=== PATIENT | female | born 1930 ===

== ENCOUNTER 2016-11-17 22:25 | Inpatient (IN) | payer MEDICARE, MEDICAID ==
[2016-11-18 00:44] LABS: Albumin 3.7 g/dL (3.2-5.2); BUN/Creatinine Ratio 32.7 (8-20); C Reactive Protein 97.65 mg/L (< 5.00); Calcium 10.1 mg/dL (8.6-10.3); EGFR African American 43.1 (>60); EGFR Non-African American 33.5 (>60); Globulin 4.1 g/dL (2-4); Magnesium 2.9 mg/dL (1.9-2.7); Potassium 3.6 mmol/L (3.5-5.0); Total Bilirubin 0.9 mg/dL (0.2-1.0); Total Protein 7.8 g/dL (6.4-8.9)
[2016-11-18 00:45] LABS: Hematocrit 48 % (35-47); Hemoglobin 15.3 g/dl (12.0-16.0); Mean Corpuscular HGB Conc 32 g/dl (31-36); Mean Corpuscular Hemoglobin 30 pg (27-31); Mean Corpuscular Volume 94 fL (80-97); Mean Platelet Volume 9 um3 (7.4-10.4); Red Blood Count 5.09 10^6/ul (4.0-5.4); Red Cell Distribution Width 14 % (10.5-15); White Blood Count 12.8 10^3/ul (3.5-10.8)
[2016-11-18 00:53] LABS: Troponin I 0.05 ng/mL (<0.04)
[2016-11-18] MEDS ORDERED: NS 0.9% 1000 ML* 1,000 ML IV SCH (01:15)
[2016-11-18 01:25] LABS: TSH (Thyroid Stimulating Horm) 1.34 mcIU/mL (0.34-5.60)
[2016-11-18] MEDS ORDERED: NS 0.9% 1000 ML* 1,000 ML IV ONE (01:35)
--- NOTE | 2016-11-18 05:28 | HP ---
H&P (Free Text) History and Physical: PCP: Oh Conde MD Date/Time of Evaluation: 11/18/2016 0520 CC: SOB HPI: Mrs Bustamante is an 86YO female resident of [facility] HX vascular dementia, bipolar disorder, & anorexia who is unable to give any history or even current status information 2nd her dementia. This information is therefore obtained from ED staff and the available medical record. Mrs Bustamante was sent in from [facility] via EMS for hypoxia. Per EMS report upon their arrival her nasal cannula was on her forehead, her pleth tracing was unreliable, and she was in no respiratory distress. This was re-iterated in the triage note. Evaluation revealed WBCs 12k 78% neutrophils, Na+ 164, Cl- 125, an ZOHAIB BUN/cre 48/1.47 (baseline 25/0.8), Mg++ 2.9, troponin 0.05, & CRP 97. Work up otherwise appears reasonably normal for her age. PMedHx vascular dementia hypothyroidism chronic knee pain bipolar disorder gait abnormality exfoliative dermatitis anorexia constipation Ambulatory Orders Biofreeze 1 dose TOPICAL BID 11/18/16 Docusate CAP* 2 cap PO DAILY 11/18/16 Levothyroxine TAB* 25 mcg PO DAILY 11/18/16 Milk of Magnesia LIQ* 1 dose PO PRN 11/18/16 Resource 2.0 120 ml PO TID 11/18/16 Senna TAB* 8.6 mg PO DAILY 11/18/16 Allergies No Known Allergies Allergy (Verified 11/17/16 23:34) PSurgHx unobtainable SocHx: unobtainable FamHx: unobtainable ROS: as above, otherwise reviewed and all were negative Constitutional: NAD, normally developed, well-nourished elderly white female vitals: Vital Signs Temp 36.6 C 11/17/16 22:53 Pulse 77 11/18/16 04:00 Resp 16 11/17/16 22:53 BP 114/57 11/18/16 04:00 Pulse Ox 100 11/18/16 04:00 Intake & Output 11/17/16 11/17/16 11/18/16 11:59 23:59 11:59 Weight 67.132 kg HEENM: atraumatic; sclera/conjunctiva: non-icteric; blephara: sunken; hearing: unable to assess; oropharynx: clear, mucosa tacky Neck: soft tissue: non-tender; thyroid: normal Pulmonary: clear to auscultation bilaterally, good aeration, no accessory muscle use CV: RR/RR, normal S1S2, no carotid bruit, no jugular venous distention, 2+ B DP/ PT, no edema Abdominal: soft, non-distended, non-tender, no rebound/guarding/rigidity, normoactive bowel sounds, no hepatosplenomegaly or masses, no costovertebral angle tenderness Musculoskeletal: general: grossly intact; gait: unsteady Integumental: normal appearance and texture of exposed skin Psychiatric orientation: AA, disoriented affect: calm mood: acquiescent eye contact: poor content: syllabic echolalia memory: profoundly impaired responses: absent insight: absent Testing: Lab Results 11/18/16 11/18/16 11/18/16 Range/Units 00:17 00:17 00:17 WBC 12.8 H (3.5-10.8) 10^3/ul RBC 5.09 (4.0-5.4) 10^6/ul Hgb 15.3 (12.0-16.0) g/dl Hct 48 H (35-47) % MCV 94 (80-97) fL MCH 30 (27-31) pg MCHC 32 (31-36) g/dl RDW 14 (10.5-15) % Plt Count 228 (150-450) 10^3/ul MPV 9 (7.4-10.4) um3 Neut % (Auto) 78.5 (38-83) % Lymph % (Auto) 9.5 L (25-47) % [place] % (Auto) 9.6 H (1-9) % Eos % (Auto) 1.6 (0-6) % Baso % (Auto) 0.8 (0-2) % Absolute Neuts (auto) 10.0 H (1.5-7.7) 10^3/ul Absolute Lymphs (auto) 1.2 (1.0-4.8) 10^3/ul Absolute Monos (auto) 1.2 H (0-0.8) 10^3/ul Absolute Eos (auto) 0.2 (0-0.6) 10^3/ul Absolute Basos (auto) 0.1 (0-0.2) 10^3/ul Absolute Nucleated RBC 0.04 10^3/ul Nucleated RBC % 0.3 INR (Anticoag Therapy) 1.14 H (0.89-1.11) APTT 41.4 H (26.0-36.3) seconds Sodium 161 H* (133-145) mmol/L Potassium 3.6 (3.5-5.0) mmol/L Chloride 125 H (101-111) mmol/L Carbon Dioxide 28 (22-32) mmol/L Anion Gap 8 (2-11) mmol/L BUN 48 H (6-24) mg/dL Creatinine 1.47 H (0.51-0.95) mg/dL Est GFR ( Amer) 43.1 (>60) Est GFR (Non-Af Amer) 33.5 (>60) BUN/Creatinine Ratio 32.7 H (8-20) Glucose 119 H (70-100) mg/dL Lactic Acid (0.5-2.0) mmol/L Calcium 10.1 (8.6-10.3) mg/dL Magnesium 2.9 H (1.9-2.7) mg/dL Total Bilirubin 0.90 (0.2-1.0) mg/dL AST 28 (13-39) U/L ALT 76 H (7-52) U/L Alkaline Phosphatase 175 H (34-104) U/L Total Creatine Kinase 106 (10-223) U/L CK-MB (CK-2) 3.1 (0.6-6.3) ng/mL Troponin I 0.05 H* (<0.04) ng/mL C-Reactive Protein 97.65 H (< 5.00) mg/L Total Protein 7.8 (6.4-8.9) g/dL Albumin 3.7 (3.2-5.2) g/dL Globulin 4.1 H (2-4) g/dL Albumin/Globulin Ratio 0.9 L (1-3) Lipase 27 (11.0-82.0) U/L TSH 1.34 (0.34-5.60) mcIU/mL 11/18/17 Range/Units 00:17 WBC (3.5-10.8) 10^3/ul RBC (4.0-5.4) 10^6/ul Hgb (12.0-16.0) g/dl Hct (35-47) % MCV (80-97) fL MCH (27-31) pg MCHC (31-36) g/dl RDW (10.5-15) % Plt Count (150-450) 10^3/ul MPV (7.4-10.4) um3 Neut % (Auto) (38-83) % Lymph % (Auto) (25-47) % [place] % (Auto) (1-9) % Eos % (Auto) (0-6) % Baso % (Auto) (0-2) % Absolute Neuts (auto) (1.5-7.7) 10^3/ul Absolute Lymphs (auto) (1.0-4.8) 10^3/ul Absolute Monos (auto) (0-0.8) 10^3/ul Absolute Eos (auto) (0-0.6) 10^3/ul Absolute Basos (auto) (0-0.2) 10^3/ul Absolute Nucleated RBC 10^3/ul Nucleated RBC % INR (Anticoag Therapy) (0.89-1.11) APTT (26.0-36.3) seconds Sodium (133-145) mmol/L Potassium (3.5-5.0) mmol/L Chloride (101-111) mmol/L Carbon Dioxide (22-32) mmol/L Anion Gap (2-11) mmol/L BUN (6-24) mg/dL Creatinine (0.51-0.95) mg/dL Est GFR ( Amer) (>60) Est GFR (Non-Af Amer) (>60) BUN/Creatinine Ratio (8-20) Glucose (70-100) mg/dL Lactic Acid 2.0 (0.5-2.0) mmol/L Calcium (8.6-10.3) mg/dL Magnesium (1.9-2.7) mg/dL Total Bilirubin (0.2-1.0) mg/dL AST (13-39) U/L ALT (7-52) U/L Alkaline Phosphatase (34-104) U/L Total Creatine Kinase (10-223) U/L CK-MB (CK-2) (0.6-6.3) ng/mL Troponin I (<0.04) ng/mL C-Reactive Protein (< 5.00) mg/L Total Protein (6.4-8.9) g/dL Albumin (3.2-5.2) g/dL Globulin (2-4) g/dL Albumin/Globulin Ratio (1-3) Lipase (11.0-82.0) U/L TSH (0.34-5.60) mcIU/mL ECG, personally reviewed: NSR rate 89, no ischemia CXR, personally reviewed: no acute cardiopulmonary process Impression: 86F HX hypothyroidism presenting with profound dehydration and severe hyperNatremia DIAGNOSIS & PLAN Primary severe hyperNatremia & ZOHAIB 2nd profound dehydration : 1/2 NS at 150cc/hr : trend serum sodium & renal function : monitor for volume overload : supportive care leukocytosis : trend elevated troponin : telemetry : trend Secondary vascular dementia : no acute issues hypothyroidism : continue levothyroxine chronic knee pain : acetaminophen PRN bipolar disorder : no acute issues gait abnormality : fall precautions Admission Rational: inpatient ICU for severe hypoNatremia in patient at high risk for mortality making outpatient status inappropriate DVTp: heparin SQ & SCDs Code Status: full - needs revisiting HCP: BrotherJayden
[2016-11-18] MEDS ORDERED: Acetaminophen TAB* 325 MG PO PRN (05:43)
[2016-11-18] MEDS ORDERED: Ondansetron INJ* 2 MG/ML VIAL IV PRN (05:55)
[2016-11-18] MEDS ORDERED: Melatonin (NF) 3 MG TAB PO PRN (05:55)
[2016-11-18] MEDS ORDERED: NS 0.45% 1000 ML BAG* 1,000 ML IV SCH (06:00)
[2016-11-18 07:14] LABS: Hematocrit 42 % (35-47); Hemoglobin 13.4 g/dl (12.0-16.0); Mean Corpuscular HGB Conc 32 g/dl (31-36); Mean Corpuscular Hemoglobin 30 pg (27-31); Mean Corpuscular Volume 94 fL (80-97); Mean Platelet Volume 9 um3 (7.4-10.4); Red Blood Count 4.43 10^6/ul (4.0-5.4); Red Cell Distribution Width 14 % (10.5-15); White Blood Count 10.3 10^3/ul (3.5-10.8)
[2016-11-18 07:16] LABS: BUN/Creatinine Ratio 35.9 (8-20); Calcium 8.7 mg/dL (8.6-10.3); Direct Bilirubin 0.2 mg/dL (0.03-0.18); EGFR African American 50.6 (>60); EGFR Non-African American 39.4 (>60); Globulin 3.5 g/dL (2-4); Indirect Bilirubin 0.7 mg/dL (0.3-1.0); Potassium 3.6 mmol/L (3.5-5.0); Total Bilirubin 0.9 mg/dL (0.2-1.0); Total Protein 6.5 g/dL (6.4-8.9)
[2016-11-18 07:17] LABS: Troponin I 0.03 ng/mL (<0.04)
--- NOTE | 2016-11-18 07:56 | RAD ---
INDICATION: Hypoxia. COMPARISON: There are no prior studies available for comparison. TECHNIQUE: A portable view of the chest was obtained. FINDINGS: Cardiac and mediastinal contours appear to be within normal limits. The lungs are slightly hyperinflated. There is a small trace at the left lung base. There is a relatively large sclerotic lesion in the proximal left humerus measuring 4 x 3.5 cm in diameter. The results of this exam were discussed with the referring clinician. IMPRESSION: 1. SMALL LEFT BASILAR INFILTRATE. 2. SCLEROTIC LESION IN THE PROXIMAL LEFT HUMERUS. RECOMMEND A BONE SCAN FOR FURTHER EVALUATION.
--- NOTE | 2016-11-18 07:59 | ED ---
Bill Kumar Salem, scribed for Valentín Briones MD on 11/17/16 at 2345 . Shortness of Breath - HPI Summary HPI Summary: Patient is a 86 y/o female who presents to the ED per EMS from [facility] with a low oxygen level. Per EMS, pt had 100% O2 Sat on 3.5L NC and no SOB. Pt s bp was at 106/46 upon examination. Pt is a poor historian and has no complaints. Level 5 Caveat. - History of Current Complaint Chief Complaint: EDShortnessOfBreath Time Seen by Provider: 11/17/16 22:45 Hx Obtained From: EMS Hx From Patient Unobtainable Due To: Dementia Onset/Duration: Gradual Onset, Resolved Timing: Constant Current Severity: Moderate Dyspnea At: Rest Aggrevating Factors: Nothing Alleviating Factors: Nothing Associated Signs & Symptoms: Negative - Allergy/Home Medications Allergies/Adverse Reactions: Allergies Allergy/AdvReac Type Severity Reaction Status Date / Time No Known Allergies Allergy Verified 11/17/16 23:34 PMH/Surg Hx/FS Hx/Imm Hx Infectious Disease History: No Infectious Disease History: Denies: Traveled Outside the [place] in Last 30 Days - Family History Known Family History: Positive: Unknown - Pt is a poor historian. - Social History [facility]: [facility] Review of Systems Negative: Fever Positive: Shortness Of Breath, Other - Low O2 Sat. All Other Systems Reviewed And Are Negative: No - Comments Additional Review of Systems Comments: Level 5 caveat. Physical Exam - Summary Physical Exam Summary: Level 5 Caveat. Triage Information Reviewed: Yes Vital Signs On Initial Exam: Initial Vitals Temp Pulse Resp BP Pulse Ox 97.8 F 98 16 106/46 100 11/17/16 22:53 11/17/16 22:53 11/17/16 22:53 11/17/16 22:53 11/17/16 22:53 Vital Signs Reviewed: Yes Appearance: Positive: Well-Appearing, No Pain Distress Skin: Positive: Warm, Skin Color Reflects Adequate Perfusion, Dry Head/Face: Positive: Normal Head/Face Inspection Eyes: Positive: EOMI, LA Neck: Positive: Supple, Nontender Respiratory/Lung Sounds: Positive: Clear to Auscultation, Breath Sounds Present Cardiovascular: Positive: RRR Abdomen Description: Positive: Nontender, Soft Musculoskeletal: Positive: Normal, Strength/ROM Intact Neurological: Positive: Normal, Sensory/Motor Intact, Other - Obviously demented. Diagnostics - Vital Signs Vital Signs Temp Pulse Resp BP Pulse Ox 11/17/16 22:53 97.8 F 98 16 106/46 100 - Laboratory Lab Results: Lab Results 11/18/16 11/18/16 11/18/16 Range/Units 00:17 00:17 00:17 WBC 12.8 H (3.5-10.8) 10^3/ul RBC 5.09 (4.0-5.4) 10^6/ul Hgb 15.3 (12.0-16.0) g/dl Hct 48 H (35-47) % MCV 94 (80-97) fL MCH 30 (27-31) pg MCHC 32 (31-36) g/dl RDW 14 (10.5-15) % Plt Count 228 (150-450) 10^3/ul MPV 9 (7.4-10.4) um3 Neut % (Auto) 78.5 (38-83) % Lymph % (Auto) 9.5 L (25-47) % [place] % (Auto) 9.6 H (1-9) % Eos % (Auto) 1.6 (0-6) % Baso % (Auto) 0.8 (0-2) % Absolute Neuts (auto) 10.0 H (1.5-7.7) 10^3/ul Absolute Lymphs (auto) 1.2 (1.0-4.8) 10^3/ul Absolute Monos (auto) 1.2 H (0-0.8) 10^3/ul Absolute Eos (auto) 0.2 (0-0.6) 10^3/ul Absolute Basos (auto) 0.1 (0-0.2) 10^3/ul Absolute Nucleated RBC 0.04 10^3/ul Nucleated RBC % 0.3 INR (Anticoag Therapy) 1.14 H (0.89-1.11) APTT 41.4 H (26.0-36.3) seconds Sodium 161 H* (133-145) mmol/L Potassium 3.6 (3.5-5.0) mmol/L Chloride 125 H (101-111) mmol/L Carbon Dioxide 28 (22-32) mmol/L Anion Gap 8 (2-11) mmol/L BUN 48 H (6-24) mg/dL Creatinine 1.47 H (0.51-0.95) mg/dL Est GFR ( Amer) 43.1 (>60) Est GFR (Non-Af Amer) 33.5 (>60) BUN/Creatinine Ratio 32.7 H (8-20) Glucose 119 H (70-100) mg/dL Lactic Acid (0.5-2.0) mmol/L Calcium 10.1 (8.6-10.3) mg/dL Magnesium 2.9 H (1.9-2.7) mg/dL Total Bilirubin 0.90 (0.2-1.0) mg/dL AST 28 (13-39) U/L ALT 76 H (7-52) U/L Alkaline Phosphatase 175 H (34-104) U/L Total Creatine Kinase 106 (10-223) U/L CK-MB (CK-2) 3.1 (0.6-6.3) ng/mL Troponin I 0.05 H* (<0.04) ng/mL C-Reactive Protein 97.65 H (< 5.00) mg/L Total Protein 7.8 (6.4-8.9) g/dL Albumin 3.7 (3.2-5.2) g/dL Globulin 4.1 H (2-4) g/dL Albumin/Globulin Ratio 0.9 L (1-3) Lipase 27 (11.0-82.0) U/L TSH 1.34 (0.34-5.60) mcIU/mL 11/18/16 Range/Units 00:17 WBC (3.5-10.8) 10^3/ul RBC (4.0-5.4) 10^6/ul Hgb (12.0-16.0) g/dl Hct (35-47) % MCV (80-97) fL MCH (27-31) pg MCHC (31-36) g/dl RDW (10.5-15) % Plt Count (150-450) 10^3/ul MPV (7.4-10.4) um3 Neut % (Auto) (38-83) % Lymph % (Auto) (25-47) % [place] % (Auto) (1-9) % Eos % (Auto) (0-6) % Baso % (Auto) (0-2) % Absolute Neuts (auto) (1.5-7.7) 10^3/ul Absolute Lymphs (auto) (1.0-4.8) 10^3/ul Absolute Monos (auto) (0-0.8) 10^3/ul Absolute Eos (auto) (0-0.6) 10^3/ul Absolute Basos (auto) (0-0.2) 10^3/ul Absolute Nucleated RBC 10^3/ul Nucleated RBC % INR (Anticoag Therapy) (0.89-1.11) APTT (26.0-36.3) seconds Sodium (133-145) mmol/L Potassium (3.5-5.0) mmol/L Chloride (101-111) mmol/L Carbon Dioxide (22-32) mmol/L Anion Gap (2-11) mmol/L BUN (6-24) mg/dL Creatinine (0.51-0.95) mg/dL Est GFR ( Amer) (>60) Est GFR (Non-Af Amer) (>60) BUN/Creatinine Ratio (8-20) Glucose (70-100) mg/dL Lactic Acid 2.0 (0.5-2.0) mmol/L Calcium (8.6-10.3) mg/dL Magnesium (1.9-2.7) mg/dL Total Bilirubin (0.2-1.0) mg/dL AST (13-39) U/L ALT (7-52) U/L Alkaline Phosphatase (34-104) U/L Total Creatine Kinase (10-223) U/L CK-MB (CK-2) (0.6-6.3) ng/mL Troponin I (<0.04) ng/mL C-Reactive Protein (< 5.00) mg/L Total Protein (6.4-8.9) g/dL Albumin (3.2-5.2) g/dL Globulin (2-4) g/dL Albumin/Globulin Ratio (1-3) Lipase (11.0-82.0) U/L TSH (0.34-5.60) mcIU/mL Result Diagrams: 11/18/16 06:40 11/18/16 06:40 Lab Statement: Any lab studies that have been ordered have been reviewed, and results considered in the medical decision making process. - Radiology CXR Radiology Interpretation Completed By: ED Physician - Negative. - EKG 0041 EKG Interpretation: NSR @ [address] No ectopy. Course/Dx - Course Course Of Treatment: CRITICAL CARE TIME LESS THAN 30 MINUTES Assessment/Plan: ADMIT HOSPITALIST STABLE. - Diagnoses Provider Diagnoses: Hyponatremia, Weakness - Physician Notifications Discussed Care of Patient With: Dr. Best (hospitalist) @ 0111. Will admit. Discharge - Discharge Plan Condition: Stable Disposition: ADMITTED TO [facility] The documentation as recorded by the Bill skelton Salem accurately reflects the service I personally performed and the decisions made by me, Valentín Briones MD.
[2016-11-18] MEDS: Levothyroxine TAB* 25 MCG TAB PO SCH (09:57)
[2016-11-18] MEDS: Docusate CAP* 100 MG PO SCH ×2 (09:57→21:30)
[2016-11-18] MEDS: Omeprazole CAP* 20 MG PO SCH (09:57)
[2016-11-18] MEDS: Senna TAB PO SCH (09:57)
--- NOTE | 2016-11-18 10:50 | PN ---
Progress Note - Progress Note Note: I saw the patient. When asked if she hurts she starts to sing "da, da, da..." Her lungs are clear and cardiac rhythm is regular. Her abdomen is soft, she does not grimace to palpation of the abdomen. She has marked hypernatremia secondary to dehydration. I discussed the patient's current condition with her Nephew Jayden Robby (HCP) and he has decided that he would not want to pursue aggressive management/treatment and in fact wants to opt for comfort care. He has agreed to DNR/I-witnessed by the patient's nurse Asha Grier. I have ordered a palliative care consult-hopefully she can be seen today and d/bull back to [facility] either later today or tomorrow.
[2016-11-18] MEDS: Heparin VIAL(*) 5000 UNITS/ML VIAL (FIVE THOUSAND) SUBCUT SCH ×2 (14:20→21:40)
[2016-11-18] MEDS: cefTRIAXone VIAL(*) 1,000 MG in NS 0.9% 50 ML* 50 ML IVPB SCH (18:18)
[2016-11-18 18:21] LABS: Urine Bacteria Absent (Absent); Urine Bilirubin Negative (Negative); Urine Glucose Negative (Negative); Urine Nitrite Positive (Negative)
[2016-11-18] MEDS: NS 0.45% 1000 ML BAG* 1,000 ML IV SCH (19:42)
--- NOTE | 2016-11-18 21:11 | CONS ---
PALLIATIVE CARE CONSULTATION: DATE OF CONSULTATION: 11/18/16 REFERRING PHYSICIAN: Sharri Delacruz DO [facility] COURSE: This is an 86-year-old female with past medical history of vascular dementia, bipolar disorder, who presented from [facility] for shortness of breath. The patient is nonverbal and only sings songs , so the history is obtained by the chart and the staff. Up until the November 06, the patient appears to have been walking herself independently and feeding herself. It appears after that she possibly was complaining of knee pain and they were evaluating this with x-ray that was unremarkable and putting Biofreeze gel on this as well with no significant improvement. By the time around the 09 of November, the patient became wheelchair bound and on the , it states that she had been refusing to eat. It appears that the provider did some baseline blood workup on her. It seems that her p.o. input had improved initially; however, they were concerned about shortness of breath with her and her oxygen saturation going down to 85% and according to the chart, concerned that she is actively dying. At this time the patient is still refusing to eat. She does wake up easily and start singing songs in no acute distress, otherwise she is unable to answer any questions or follow any commands appropriately and unable to obtain review of systems. The patient was admitted to the ICU because she was found to be hypernatremic and acute kidney injury and was started on half normal saline to follow her sodium closely in the ICU. PAST MEDICAL HISTORY: 1. Vascular dementia. 2. Hypothyroidism. 3. History of knee pain. 4. Bipolar disorder. 5. Gait abnormality. Normally ambulates with a walker. 6. Exfoliative dermatitis. 7. History of anorexia. 8. History of constipation. MEDICATIONS: 1. Tylenol 650 mg every 6 hours as needed. 2. Colace 200 mg p.o. b.i.d. 3. Heparin 5000 units subcu t.i.d. 4. Synthroid 25 mcg p.o. daily. 5. Melatonin 3 mg at bedtime. 6. Half normal saline at 150 cc an hour. 7. Omeprazole 20 mg daily. 8. Zofran 4 mg IV q.6 h. as needed. 9. Senna 1 tab daily. ALLERGIES: No known drug allergies. FAMILY HISTORY: Unable to obtain. SOCIAL HISTORY: The patient resides at [facility]. On admission, she has a MOLST form completed in 2014 with her nephew stating that she was a full code. Dr. Delacruz was able to get in touch with the nephew, Jayden Bustamante, who deemed her DNR/DNI with no feeding tube and new MOLST form has since been filled out. REVIEW OF SYSTEMS: Unable to obtain. As mentioned, the patient unable to interact. PHYSICAL EXAM: Vital Signs: Temperature 98.2, pulse rate 77, respiratory rate 18, oxygen saturation 97% on room air, blood pressure 128/64. General: In no acute distress, awakes easily to voice and starts singing. Pupils are pinpoint and sluggish, anicteric. Head normocephalic. Oropharynx: Mucous membranes dry. Neck: Supple. No lymphadenopathy. Cardiac: Regular rate and rhythm. Systolic murmur heard throughout. Respiratory: Diminished breath sounds. No wheezes, rhonchi, or rales. Abdomen: Soft, nontender, nondistended. Extremities: No clubbing, cyanosis, or edema. +1 DP's. Neurologic: The patient is singing. Unable to follow commands. Her lower extremities are rigid and stiff. I do not appreciate any knee effusion or any significant deformity in her lower extremities. No pelvic instability either. LABORATORY DATA: White count 10.3, hemoglobin 13.4, hematocrit 42, platelets 184. INR is 1.14. Sodium 161, potassium 3.6, chloride 129, bicarb 27, BUN 46, creatinine 1.28. Her albumin on admission was 3.7. TSH of 1.34. RADIOGRAPHIC DATA: Chest x-ray shows small left basilar infiltrates, sclerotic lesion in the proximal left humerus. Recommended bone scan for further evaluation. ASSESSMENT: This is an 86-year-old female with past medical history of vascular dementia and bipolar disorder who presents to the emergency room with an acute decline and concern for shortness of breath and hypoxia on admission, found to be hypernatremic, initially admitted to the ICU. A MOLST form currently now is a DNR/DNI. It is unclear the severity of her dementia as it appears that she was ambulating with a walker on the 06 of November, a little more than a week ago and was feeding herself as well. This seems to be a rather acute deterioration and possibly a reversible cause can be discovered such as a urinary tract infection. I spoke with Dr. Delacruz who also agreed with checking urinalysis and potentially treating her for empiric antibiotics for presumed urinary tract infection, continuing to treat her hypernatremia and renal failure and reassess her nutritional status if she is more willing to take p.o. once any reversible causes have been discovered. If in fact she does not have a urinary tract infection and her electrolytes have improved and she is still not interested in eating or drinking, then I do think that she is eligible for hospice and would get in touch with her nephew, Jayden Bustamante. I have not been able to get in touch with him at this time, but we will reach him again after further investigation has been done with any possible reversible cause for Ms. Bustamante. At this time she does not appear to be in any distress or discomfort. Of note, Jayden Bustamante' phone numbers are [phone] and [phone]. Thank you for this consultation. I will follow up and follow along with you. TIME SPENT: Greater than 60 minutes spent doing the consultation, more than half the time spent in direct patient contact. CC: Melida Conde MD* [id number]/[facility] #: [id number] MTDDanielle
[2016-11-19] MEDS: Omeprazole CAP* 20 MG PO SCH (05:45)
[2016-11-19] MEDS: Levothyroxine TAB* 25 MCG TAB PO SCH (05:46)
[2016-11-19] MEDS: Heparin VIAL(*) 5000 UNITS/ML VIAL (FIVE THOUSAND) SUBCUT SCH ×3 (05:49→22:49)
[2016-11-19 05:58] LABS: Hematocrit 35 % (35-47); Hemoglobin 11.5 g/dl (12.0-16.0); Mean Corpuscular HGB Conc 33 g/dl (31-36); Mean Corpuscular Hemoglobin 30 pg (27-31); Mean Corpuscular Volume 93 fL (80-97); Mean Platelet Volume 10 um3 (7.4-10.4); Red Blood Count 3.78 10^6/ul (4.0-5.4); Red Cell Distribution Width 14 % (10.5-15); White Blood Count 9.1 10^3/ul (3.5-10.8)
[2016-11-19] MEDS: NS 0.45% 1000 ML BAG* 1,000 ML IV SCH (06:02)
[2016-11-19 06:09] LABS: BUN/Creatinine Ratio 30.2 (8-20); Calcium 8.3 mg/dL (8.6-10.3); EGFR African American 70.5 (>60); EGFR Non-African American 54.8 (>60); Potassium 3.4 mmol/L (3.5-5.0)
[2016-11-19] MEDS: Senna TAB PO SCH (09:56)
[2016-11-19] MEDS: Docusate CAP* 100 MG PO SCH (09:56)
[2016-11-19] MEDS ORDERED: D5W 1/4 NS 20 Meq KCL 1000 ML* 1,000 ML IV SCH (11:00)
--- NOTE | 2016-11-19 11:22 | PN ---
Subjective Date of Service: 11/19/16 Interval History: Pt does not answer any questions. She sings "da, da, da." Objective Active Medications: Acetaminophen (Tylenol Tab*) 650 mg PO Q6H PRN PRN Reason: FEVER/PAIN Heparin Sodium (Porcine) (Heparin Vial(*)) 5,000 units SUBCUT Q8HR [facility] Last Admin: 11/19/16 05:49 Dose: 5,000 units Ceftriaxone Sodium 1,000 mg/ (Sodium Chloride) 50 mls @ 200 mls/hr IVPB Q24H [facility] Last Admin: 11/18/16 18:18 Dose: 200 mls/hr Potassium Chloride/Dextrose (D5w 1/4 Ns 20 Meq Kcl 1000 Ml*) 1,000 mls @ 75 mls /hr IV PER RATE [facility] Stop: 11/20/16 00:19 Levothyroxine Sodium (Synthroid Tab*) 25 mcg PO 0600 [facility] Last Admin: 11/19/16 05:46 Dose: 25 mcg Melatonin (Melatonin (Nf)) 3 mg PO BEDTIME PRN; Protocol PRN Reason: Sleep Omeprazole (Prilosec Cap*) 20 mg PO DAILY@0600 [facility] Last Admin: 11/19/16 05:45 Dose: 20 mg Ondansetron HCl (Zofran Inj*) 4 mg IV Q6H PRN PRN Reason: NAUSEA Senna (Senokot Tab*) 1 tab PO DAILY [facility] Last Admin: 11/19/16 09:56 Dose: 1 tab Vital Signs 11/18/16 11/18/16 11/18/16 11:42 12:00 13:00 Temperature 98.6 F Pulse Rate 63 Respiratory 18 18 Rate Blood Pressure 128/53 117/79 (mmHg) O2 Sat by Pulse 100 Oximetry 11/18/16 11/18/16 11/18/16 15:24 15:26 19:30 Temperature 98.2 F 98.2 F 98.4 F Pulse Rate 77 77 115 Respiratory 18 18 16 Rate Blood Pressure 128/64 128/64 134/75 (mmHg) O2 Sat by Pulse 97 97 98 Oximetry 11/18/16 11/18/16 11/19/16 22:34 23:19 03:33 Temperature 97.6 F 98.1 F Pulse Rate 176 81 Respiratory 16 16 22 Rate Blood Pressure 106/60 112/51 (mmHg) O2 Sat by Pulse 100 97 Oximetry 11/19/16 11/19/16 07:46 07:50 Temperature 98.1 F Pulse Rate 71 Respiratory 18 18 Rate Blood Pressure 117/64 (mmHg) O2 Sat by Pulse 100 Oximetry Oxygen Devices in Use Now: None Appearance: Elderly female sitting up in bed, NAD Eyes: No Scleral Icterus Ears/Nose/Mouth/Throat: Mucous Membranes Moist Respiratory: Symmetrical Chest Expansion and Respiratory Effort, Clear to Auscultation Cardiovascular: NL Sounds; No Murmurs; No JVD, RRR, No Edema Abdominal: NL Sounds; No Tenderness; No Distention Extremities: No Clubbing, Cyanosis Skin: No Rash or Ulcers, No Nodules or Sclerosis Neurological: - - alert, not oriented Result Diagrams: 11/19/16 05:22 11/19/16 05:22 Additional Lab and Data: Lab Results 11/18/16 11/18/16 11/18/16 Range/Units 00:17 00:17 00:17 WBC 12.8 H (3.5-10.8) 10^3/ul RBC 5.09 (4.0-5.4) 10^6/ul Hgb 15.3 (12.0-16.0) g/dl Hct 48 H (35-47) % MCV 94 (80-97) fL MCH 30 (27-31) pg MCHC 32 (31-36) g/dl RDW 14 (10.5-15) % Plt Count 228 (150-450) 10^3/ul MPV 9 (7.4-10.4) um3 Neut % (Auto) 78.5 (38-83) % Lymph % (Auto) 9.5 L (25-47) % [place] % (Auto) 9.6 H (1-9) % Eos % (Auto) 1.6 (0-6) % Baso % (Auto) 0.8 (0-2) % Absolute Neuts (auto) 10.0 H (1.5-7.7) 10^3/ul Absolute Lymphs (auto) 1.2 (1.0-4.8) 10^3/ul Absolute Monos (auto) 1.2 H (0-0.8) 10^3/ul Absolute Eos (auto) 0.2 (0-0.6) 10^3/ul Absolute Basos (auto) 0.1 (0-0.2) 10^3/ul Absolute Nucleated RBC 0.04 10^3/ul Nucleated RBC % 0.3 INR (Anticoag Therapy) 1.14 H (0.89-1.11) APTT 41.4 H (26.0-36.3) seconds Sodium 161 H* (133-145) mmol/L Potassium 3.6 (3.5-5.0) mmol/L Chloride 125 H (101-111) mmol/L Carbon Dioxide 28 (22-32) mmol/L Anion Gap 8 (2-11) mmol/L BUN 48 H (6-24) mg/dL Creatinine 1.47 H (0.51-0.95) mg/dL Est GFR ( Amer) 43.1 (>60) Est GFR (Non-Af Amer) 33.5 (>60) BUN/Creatinine Ratio 32.7 H (8-20) Glucose 119 H (70-100) mg/dL Lactic Acid (0.5-2.0) mmol/L Calcium 10.1 (8.6-10.3) mg/dL Magnesium 2.9 H (1.9-2.7) mg/dL Total Bilirubin 0.90 (0.2-1.0) mg/dL AST 28 (13-39) U/L ALT 76 H (7-52) U/L Alkaline Phosphatase 175 H (34-104) U/L Total Creatine Kinase 106 (10-223) U/L CK-MB (CK-2) 3.1 (0.6-6.3) ng/mL Troponin I 0.05 H* (<0.04) ng/mL C-Reactive Protein 97.65 H (< 5.00) mg/L Total Protein 7.8 (6.4-8.9) g/dL Albumin 3.7 (3.2-5.2) g/dL Globulin 4.1 H (2-4) g/dL Albumin/Globulin Ratio 0.9 L (1-3) Lipase 27 (11.0-82.0) U/L TSH 1.34 (0.34-5.60) mcIU/mL 11/18/17 Range/Units 00:17 WBC (3.5-10.8) 10^3/ul RBC (4.0-5.4) 10^6/ul Hgb (12.0-16.0) g/dl Hct (35-47) % MCV (80-97) fL MCH (27-31) pg MCHC (31-36) g/dl RDW (10.5-15) % Plt Count (150-450) 10^3/ul MPV (7.4-10.4) um3 Neut % (Auto) (38-83) % Lymph % (Auto) (25-47) % [place] % (Auto) (1-9) % Eos % (Auto) (0-6) % Baso % (Auto) (0-2) % Absolute Neuts (auto) (1.5-7.7) 10^3/ul Absolute Lymphs (auto) (1.0-4.8) 10^3/ul Absolute Monos (auto) (0-0.8) 10^3/ul Absolute Eos (auto) (0-0.6) 10^3/ul Absolute Basos (auto) (0-0.2) 10^3/ul Absolute Nucleated RBC 10^3/ul Nucleated RBC % INR (Anticoag Therapy) (0.89-1.11) APTT (26.0-36.3) seconds Sodium (133-145) mmol/L Potassium (3.5-5.0) mmol/L Chloride (101-111) mmol/L Carbon Dioxide (22-32) mmol/L Anion Gap (2-11) mmol/L BUN (6-24) mg/dL Creatinine (0.51-0.95) mg/dL Est GFR ( Amer) (>60) Est GFR (Non-Af Amer) (>60) BUN/Creatinine Ratio (8-20) Glucose (70-100) mg/dL Lactic Acid 2.0 (0.5-2.0) mmol/L Calcium (8.6-10.3) mg/dL Magnesium (1.9-2.7) mg/dL Total Bilirubin (0.2-1.0) mg/dL AST (13-39) U/L ALT (7-52) U/L Alkaline Phosphatase (34-104) U/L Total Creatine Kinase (10-223) U/L CK-MB (CK-2) (0.6-6.3) ng/mL Troponin I (<0.04) ng/mL C-Reactive Protein (< 5.00) mg/L Total Protein (6.4-8.9) g/dL Albumin (3.2-5.2) g/dL Globulin (2-4) g/dL Albumin/Globulin Ratio (1-3) Lipase (11.0-82.0) U/L TSH (0.34-5.60) mcIU/mL Microbiology and Other Data: Microbiology 11/18/16 07:39 Nasal Screen MRSA (PCR)([facility]) - Final Nasal Mrsa Negative Assess/Plan/Problems-Billing Ms Bustamante is an 86 yo F with a h/o advanced dementia who was brought to the ER for hypoxia but found to be hypernatremic. - Patient Problems (1) Hypernatremia Current Visit: Yes Status: Acute Code(s): E87.0 - HYPEROSMOLALITY AND HYPERNATREMIA SNOMED Code(s): 73818648 Comment: Improving slowly. Her hypernatremia was likely secondary to poor oral intake for the last 1 week or so. Perhaps her poor oral intake was secondary to UTI however despite starting treatment for UTI she did not eat her breakfast this AM. Her nephew yesterday was very clear that the patient had previously told him that she would not want a feeding tube. Will continue with hydration to correct the Na level and continue to encourage the patient to eat/ help feed her. (2) UTI (urinary tract infection) Current Visit: Yes Status: Acute Comment: Urine culture is pending. I started ceftriaxone yesterday. Await final culture data. (3) Dementia Current Visit: Yes Status: Acute Code(s): F03.90 - UNSPECIFIED DEMENTIA WITHOUT BEHAVIORAL DISTURBANCE SNOMED Code(s): 50162548 Comment: Pt is essentially non-communicative. Continue to support pt as needed. (4) DVT prophylaxis Current Visit: Yes Status: Acute Code(s): QVG7447 - SNOMED Code(s): 901809822 Comment: SQ heparin (5) DNR (do not resuscitate) Current Visit: Yes Status: Acute
[2016-11-19] MEDS: cefTRIAXone VIAL(*) 1,000 MG in NS 0.9% 50 ML* 50 ML IVPB SCH (17:50)
[2016-11-20] MEDS: Heparin VIAL(*) 5000 UNITS/ML VIAL (FIVE THOUSAND) SUBCUT SCH ×3 (06:06→21:00)
[2016-11-20] MEDS: Omeprazole CAP* 20 MG PO SCH (06:07)
[2016-11-20] MEDS: Levothyroxine TAB* 25 MCG TAB PO SCH (06:07)
[2016-11-20] MEDS: Senna TAB PO SCH (10:20)
[2016-11-20 11:33] LABS: BUN/Creatinine Ratio 21.8 (8-20); Calcium 8.4 mg/dL (8.6-10.3); EGFR African American 60.3 (>60); EGFR Non-African American 46.9 (>60); Potassium 3.2 mmol/L (3.5-5.0)
[2016-11-20] MEDS ORDERED: KCL 20 MEQ/100 ML IVPREMIX* 20 MEQ/100 ML BAG IV ONE (15:01)
--- NOTE | 2016-11-20 15:13 | PN ---
Subjective Date of Service: 11/20/16 Interval History: Pt does not answer any questions. Today she sings "ta, ta, ta, ta, ta..." Objective Active Medications: Acetaminophen (Tylenol Tab*) 650 mg PO Q6H PRN PRN Reason: FEVER/PAIN Heparin Sodium (Porcine) (Heparin Vial(*)) 5,000 units SUBCUT Q8HR [facility] Last Admin: 11/20/16 13:53 Dose: 5,000 units Ceftriaxone Sodium 1,000 mg/ (Sodium Chloride) 50 mls @ 200 mls/hr IVPB Q24H [facility] Last Admin: 11/19/16 17:50 Dose: 200 mls/hr Potassium Chloride/Dextrose (D5w 1/4 Ns 20 Meq Kcl 1000 Ml*) 1,000 mls @ 100 mls/hr IV PER RATE [facility] Stop: 11/21/16 01:59 Potassium Chloride (Potassium Chloride 20 Meq/100 Ml Ivpremix*) 20 meq in 100 mls @ 50 mls/hr IV ONCE ONE Stop: 11/20/16 17:00 Levothyroxine Sodium (Synthroid Tab*) 25 mcg PO 0600 [facility] Last Admin: 11/20/16 06:07 Dose: 25 mcg Omeprazole (Prilosec Cap*) 20 mg PO DAILY@0600 [facility] Last Admin: 11/20/16 06:07 Dose: 20 mg Ondansetron HCl (Zofran Inj*) 4 mg IV Q6H PRN PRN Reason: NAUSEA Senna (Senokot Tab*) 1 tab PO DAILY [facility] Last Admin: 11/20/16 10:20 Dose: 1 tab Vital Signs 11/19/16 11/19/16 11/19/16 15:42 19:35 20:00 Temperature 99.4 F 97.5 F Pulse Rate 95 73 Respiratory 20 16 18 Rate Blood Pressure 131/54 126/53 (mmHg) O2 Sat by Pulse 97 100 Oximetry 11/19/16 11/20/16 11/20/16 23:40 03:57 07:34 Temperature 99.9 F 98.3 F 99.7 F Pulse Rate 104 77 70 Respiratory 20 16 18 Rate Blood Pressure 101/77 125/46 121/52 (mmHg) O2 Sat by Pulse 93 97 98 Oximetry 11/20/16 08:00 Temperature Pulse Rate Respiratory 16 Rate Blood Pressure (mmHg) O2 Sat by Pulse Oximetry Oxygen Devices in Use Now: None Appearance: Elderly female lying in bed, NAD Eyes: No Scleral Icterus Ears/Nose/Mouth/Throat: Mucous Membranes Moist Respiratory: Symmetrical Chest Expansion and Respiratory Effort, Clear to Auscultation Cardiovascular: NL Sounds; No Murmurs; No JVD, RRR, No Edema Abdominal: NL Sounds; No Tenderness; No Distention Extremities: No Clubbing, Cyanosis Skin: No Rash or Ulcers, No Nodules or Sclerosis Neurological: Alert and Oriented x 3 Result Diagrams: 11/19/16 05:22 11/20/16 11:06 Additional Lab and Data: Lab Results 11/18/16 11/18/16 11/18/16 Range/Units 00:17 00:17 00:17 WBC 12.8 H (3.5-10.8) 10^3/ul RBC 5.09 (4.0-5.4) 10^6/ul Hgb 15.3 (12.0-16.0) g/dl Hct 48 H (35-47) % MCV 94 (80-97) fL MCH 30 (27-31) pg MCHC 32 (31-36) g/dl RDW 14 (10.5-15) % Plt Count 228 (150-450) 10^3/ul MPV 9 (7.4-10.4) um3 Neut % (Auto) 78.5 (38-83) % Lymph % (Auto) 9.5 L (25-47) % [place] % (Auto) 9.6 H (1-9) % Eos % (Auto) 1.6 (0-6) % Baso % (Auto) 0.8 (0-2) % Absolute Neuts (auto) 10.0 H (1.5-7.7) 10^3/ul Absolute Lymphs (auto) 1.2 (1.0-4.8) 10^3/ul Absolute Monos (auto) 1.2 H (0-0.8) 10^3/ul Absolute Eos (auto) 0.2 (0-0.6) 10^3/ul Absolute Basos (auto) 0.1 (0-0.2) 10^3/ul Absolute Nucleated RBC 0.04 10^3/ul Nucleated RBC % 0.3 INR (Anticoag Therapy) 1.14 H (0.89-1.11) APTT 41.4 H (26.0-36.3) seconds Sodium 161 H* (133-145) mmol/L Potassium 3.6 (3.5-5.0) mmol/L Chloride 125 H (101-111) mmol/L Carbon Dioxide 28 (22-32) mmol/L Anion Gap 8 (2-11) mmol/L BUN 48 H (6-24) mg/dL Creatinine 1.47 H (0.51-0.95) mg/dL Est GFR ( Amer) 43.1 (>60) Est GFR (Non-Af Amer) 33.5 (>60) BUN/Creatinine Ratio 32.7 H (8-20) Glucose 119 H (70-100) mg/dL Lactic Acid (0.5-2.0) mmol/L Calcium 10.1 (8.6-10.3) mg/dL Magnesium 2.9 H (1.9-2.7) mg/dL Total Bilirubin 0.90 (0.2-1.0) mg/dL AST 28 (13-39) U/L ALT 76 H (7-52) U/L Alkaline Phosphatase 175 H (34-104) U/L Total Creatine Kinase 106 (10-223) U/L CK-MB (CK-2) 3.1 (0.6-6.3) ng/mL Troponin I 0.05 H* (<0.04) ng/mL C-Reactive Protein 97.65 H (< 5.00) mg/L Total Protein 7.8 (6.4-8.9) g/dL Albumin 3.7 (3.2-5.2) g/dL Globulin 4.1 H (2-4) g/dL Albumin/Globulin Ratio 0.9 L (1-3) Lipase 27 (11.0-82.0) U/L TSH 1.34 (0.34-5.60) mcIU/mL 11/18/16 Range/Units 00:17 WBC (3.5-10.8) 10^3/ul RBC (4.0-5.4) 10^6/ul Hgb (12.0-16.0) g/dl Hct (35-47) % MCV (80-97) fL MCH (27-31) pg MCHC (31-36) g/dl RDW (10.5-15) % Plt Count (150-450) 10^3/ul MPV (7.4-10.4) um3 Neut % (Auto) (38-83) % Lymph % (Auto) (25-47) % [place] % (Auto) (1-9) % Eos % (Auto) (0-6) % Baso % (Auto) (0-2) % Absolute Neuts (auto) (1.5-7.7) 10^3/ul Absolute Lymphs (auto) (1.0-4.8) 10^3/ul Absolute Monos (auto) (0-0.8) 10^3/ul Absolute Eos (auto) (0-0.6) 10^3/ul Absolute Basos (auto) (0-0.2) 10^3/ul Absolute Nucleated RBC 10^3/ul Nucleated RBC % INR (Anticoag Therapy) (0.89-1.11) APTT (26.0-36.3) seconds Sodium (133-145) mmol/L Potassium (3.5-5.0) mmol/L Chloride (101-111) mmol/L Carbon Dioxide (22-32) mmol/L Anion Gap (2-11) mmol/L BUN (6-24) mg/dL Creatinine (0.51-0.95) mg/dL Est GFR ( Amer) (>60) Est GFR (Non-Af Amer) (>60) BUN/Creatinine Ratio (8-20) Glucose (70-100) mg/dL Lactic Acid 2.0 (0.5-2.0) mmol/L Calcium (8.6-10.3) mg/dL Magnesium (1.9-2.7) mg/dL Total Bilirubin (0.2-1.0) mg/dL AST (13-39) U/L ALT (7-52) U/L Alkaline Phosphatase (34-104) U/L Total Creatine Kinase (10-223) U/L CK-MB (CK-2) (0.6-6.3) ng/mL Troponin I (<0.04) ng/mL C-Reactive Protein (< 5.00) mg/L Total Protein (6.4-8.9) g/dL Albumin (3.2-5.2) g/dL Globulin (2-4) g/dL Albumin/Globulin Ratio (1-3) Lipase (11.0-82.0) U/L TSH (0.34-5.60) mcIU/mL Microbiology and Other Data: Microbiology 11/18/16 07:39 Nasal Screen MRSA (PCR)([facility]) - Final Nasal Mrsa Negative Assess/Plan/Problems-Billing Ms Bustamante is an 86 yo F with a h/o advanced dementia who was brought to the ER for hypoxia but found to be hypernatremic. - Patient Problems (1) Hypernatremia Current Visit: Yes Status: Acute Code(s): E87.0 - HYPEROSMOLALITY AND HYPERNATREMIA SNOMED Code(s): 11207418 Comment: Na level continues to improve. Resume D5 1/4NS with 20mEq KCl at 100ml/hr x1L. Repeat BMP in AM. She is eating/drinking only a very minimal amount of food despite treating a UTI and improvment in her Na level. I suspect the lack of eating at this time is not related to her UTI but will monitor over the weekend. (2) UTI (urinary tract infection) Current Visit: Yes Status: Acute Comment: Urine grew quinones-sensitive E coli. She has had 3/7 days of therapy. Can not convert to oral as the patient is not taking in orals reliably. (3) Dementia Current Visit: Yes Status: Acute Code(s): F03.90 - UNSPECIFIED DEMENTIA WITHOUT BEHAVIORAL DISTURBANCE SNOMED Code(s): 34982370 Comment: Pt is essentially non-communicative. Continue to support pt as needed. (4) DVT prophylaxis Current Visit: Yes Status: Acute Code(s): KDE9759 - SNOMED Code(s): 102345536 Comment: SQ heparin (5) DNR (do not resuscitate) Current Visit: Yes Status: Acute
[2016-11-20] MEDS ORDERED: D5W 1/4 NS 20 Meq KCL 1000 ML* 1,000 ML IV SCH (16:00)
[2016-11-20] MEDS: cefTRIAXone VIAL(*) 1,000 MG in NS 0.9% 50 ML* 50 ML IVPB SCH (18:12)
[2016-11-21] MEDS: Omeprazole CAP* 20 MG PO SCH (05:45)
[2016-11-21] MEDS: Levothyroxine TAB* 25 MCG TAB PO SCH (05:46)
[2016-11-21] MEDS: Heparin VIAL(*) 5000 UNITS/ML VIAL (FIVE THOUSAND) SUBCUT SCH ×3 (05:49→20:58)
[2016-11-21 08:35] LABS: BUN/Creatinine Ratio 21.7 (8-20); Calcium 8.1 mg/dL (8.6-10.3); EGFR African American 74.1 (>60); EGFR Non-African American 57.6 (>60); Potassium 3.6 mmol/L (3.5-5.0)
[2016-11-21] MEDS: Senna TAB PO SCH (10:24)
--- NOTE | 2016-11-21 15:14 | PN ---
Subjective Date of Service: 11/21/16 Interval History: Pt sings (no discrete words) when she sees me. Family History: Unchanged from Admission Social History: Unchanged from Admission Past Medical History: Unchanged from Admission Objective Active Medications: Acetaminophen (Tylenol Tab*) 650 mg PO Q6H PRN PRN Reason: FEVER/PAIN Heparin Sodium (Porcine) (Heparin Vial(*)) 5,000 units SUBCUT Q8HR [facility] Last Admin: 11/21/16 14:16 Dose: 5,000 units Ceftriaxone Sodium 1,000 mg/ (Sodium Chloride) 50 mls @ 200 mls/hr IVPB Q24H [facility] Last Admin: 11/20/16 18:12 Dose: 200 mls/hr Levothyroxine Sodium (Synthroid Tab*) 25 mcg PO 0600 [facility] Last Admin: 11/21/16 05:46 Dose: 25 mcg Omeprazole (Prilosec Cap*) 20 mg PO DAILY@0600 [facility] Last Admin: 11/21/16 05:45 Dose: 20 mg Ondansetron HCl (Zofran Inj*) 4 mg IV Q6H PRN PRN Reason: NAUSEA Senna (Senokot Tab*) 1 tab PO DAILY [facility] Last Admin: 11/21/16 10:24 Dose: 1 tab Vital Signs 11/20/16 11/20/16 11/20/16 15:17 15:25 19:18 Temperature 98.1 F 98.2 F Pulse Rate 71 86 Respiratory 16 18 Rate Blood Pressure 109/38 98/40 121/61 (mmHg) O2 Sat by Pulse 100 97 Oximetry 11/20/16 11/20/16 11/21/16 20:00 23:40 04:02 Temperature 98.4 F 98.0 F Pulse Rate 76 77 Respiratory 18 16 16 Rate Blood Pressure 115/46 116/52 (mmHg) O2 Sat by Pulse 99 96 Oximetry 11/21/16 11/21/16 11/21/16 06:34 08:00 08:31 Temperature 97.7 F 98.1 F Pulse Rate 73 60 Respiratory 18 16 Rate Blood Pressure 111/53 120/55 (mmHg) O2 Sat by Pulse 98 Oximetry 11/21/16 11/21/16 08:45 12:06 Temperature 98.2 F Pulse Rate 72 Respiratory 18 Rate Blood Pressure 126/42 (mmHg) O2 Sat by Pulse 98 96 Oximetry Oxygen Devices in Use Now: None Appearance: Elderly female sitting up in bed, NAD Eyes: No Scleral Icterus Ears/Nose/Mouth/Throat: Mucous Membranes Moist Respiratory: Symmetrical Chest Expansion and Respiratory Effort, Clear to Auscultation Cardiovascular: NL Sounds; No Murmurs; No JVD, RRR, No Edema Abdominal: NL Sounds; No Tenderness; No Distention Extremities: No Clubbing, Cyanosis Skin: No Rash or Ulcers, No Nodules or Sclerosis Neurological: - - awake, alert Result Diagrams: 11/19/16 05:22 11/21/16 07:50 Additional Lab and Data: Lab Results 11/18/16 11/18/16 11/18/16 Range/Units 00:17 00:17 00:17 WBC 12.8 H (3.5-10.8) 10^3/ul RBC 5.09 (4.0-5.4) 10^6/ul Hgb 15.3 (12.0-16.0) g/dl Hct 48 H (35-47) % MCV 94 (80-97) fL MCH 30 (27-31) pg MCHC 32 (31-36) g/dl RDW 14 (10.5-15) % Plt Count 228 (150-450) 10^3/ul MPV 9 (7.4-10.4) um3 Neut % (Auto) 78.5 (38-83) % Lymph % (Auto) 9.5 L (25-47) % [place] % (Auto) 9.6 H (1-9) % Eos % (Auto) 1.6 (0-6) % Baso % (Auto) 0.8 (0-2) % Absolute Neuts (auto) 10.0 H (1.5-7.7) 10^3/ul Absolute Lymphs (auto) 1.2 (1.0-4.8) 10^3/ul Absolute Monos (auto) 1.2 H (0-0.8) 10^3/ul Absolute Eos (auto) 0.2 (0-0.6) 10^3/ul Absolute Basos (auto) 0.1 (0-0.2) 10^3/ul Absolute Nucleated RBC 0.04 10^3/ul Nucleated RBC % 0.3 INR (Anticoag Therapy) 1.14 H (0.89-1.11) APTT 41.4 H (26.0-36.3) seconds Sodium 161 H* (133-145) mmol/L Potassium 3.6 (3.5-5.0) mmol/L Chloride 125 H (101-111) mmol/L Carbon Dioxide 28 (22-32) mmol/L Anion Gap 8 (2-11) mmol/L BUN 48 H (6-24) mg/dL Creatinine 1.47 H (0.51-0.95) mg/dL Est GFR ( Amer) 43.1 (>60) Est GFR (Non-Af Amer) 33.5 (>60) BUN/Creatinine Ratio 32.7 H (8-20) Glucose 119 H (70-100) mg/dL Lactic Acid (0.5-2.0) mmol/L Calcium 10.1 (8.6-10.3) mg/dL Magnesium 2.9 H (1.9-2.7) mg/dL Total Bilirubin 0.90 (0.2-1.0) mg/dL AST 28 (13-39) U/L ALT 76 H (7-52) U/L Alkaline Phosphatase 175 H (34-104) U/L Total Creatine Kinase 106 (10-223) U/L CK-MB (CK-2) 3.1 (0.6-6.3) ng/mL Troponin I 0.05 H* (<0.04) ng/mL C-Reactive Protein 97.65 H (< 5.00) mg/L Total Protein 7.8 (6.4-8.9) g/dL Albumin 3.7 (3.2-5.2) g/dL Globulin 4.1 H (2-4) g/dL Albumin/Globulin Ratio 0.9 L (1-3) Lipase 27 (11.0-82.0) U/L TSH 1.34 (0.34-5.60) mcIU/mL 17 Range/Units 00:17 WBC (3.5-10.8) 10^3/ul RBC (4.0-5.4) 10^6/ul Hgb (12.0-16.0) g/dl Hct (35-47) % MCV (80-97) fL MCH (27-31) pg MCHC (31-36) g/dl RDW (10.5-15) % Plt Count (150-450) 10^3/ul MPV (7.4-10.4) um3 Neut % (Auto) (38-83) % Lymph % (Auto) (25-47) % [place] % (Auto) (1-9) % Eos % (Auto) (0-6) % Baso % (Auto) (0-2) % Absolute Neuts (auto) (1.5-7.7) 10^3/ul Absolute Lymphs (auto) (1.0-4.8) 10^3/ul Absolute Monos (auto) (0-0.8) 10^3/ul Absolute Eos (auto) (0-0.6) 10^3/ul Absolute Basos (auto) (0-0.2) 10^3/ul Absolute Nucleated RBC 10^3/ul Nucleated RBC % INR (Anticoag Therapy) (0.89-1.11) APTT (26.0-36.3) seconds Sodium (133-145) mmol/L Potassium (3.5-5.0) mmol/L Chloride (101-111) mmol/L Carbon Dioxide (22-32) mmol/L Anion Gap (2-11) mmol/L BUN (6-24) mg/dL Creatinine (0.51-0.95) mg/dL Est GFR ( Amer) (>60) Est GFR (Non-Af Amer) (>60) BUN/Creatinine Ratio (8-20) Glucose (70-100) mg/dL Lactic Acid 2.0 (0.5-2.0) mmol/L Calcium (8.6-10.3) mg/dL Magnesium (1.9-2.7) mg/dL Total Bilirubin (0.2-1.0) mg/dL AST (13-39) U/L ALT (7-52) U/L Alkaline Phosphatase (34-104) U/L Total Creatine Kinase (10-223) U/L CK-MB (CK-2) (0.6-6.3) ng/mL Troponin I (<0.04) ng/mL C-Reactive Protein (< 5.00) mg/L Total Protein (6.4-8.9) g/dL Albumin (3.2-5.2) g/dL Globulin (2-4) g/dL Albumin/Globulin Ratio (1-3) Lipase (11.0-82.0) U/L TSH (0.34-5.60) mcIU/mL Microbiology and Other Data: Microbiology 11/18/16 07:39 Nasal Screen MRSA (PCR)([facility]) - Final Nasal Mrsa Negative Assess/Plan/Problems-Billing Ms Bustamante is an 86 yo F with a h/o advanced dementia who was brought to the ER for hypoxia but found to be hypernatremic. - Patient Problems (1) Hypernatremia Current Visit: Yes Status: Acute Code(s): E87.0 - HYPEROSMOLALITY AND HYPERNATREMIA SNOMED Code(s): 45727270 Comment: Na level continues to improve. Start NS at 75ml/hr. She is still eating only a very minimal amount of food. I think palliative care should be asked to re-evaluate the patients eligibility for hospice. (2) UTI (urinary tract infection) Current Visit: Yes Status: Acute Comment: Urine grew quinones-sensitive E coli. She has had 4/7 days of therapy. Can not convert to oral as the patient is not taking in orals reliably. (3) Dementia Current Visit: Yes Status: Acute Code(s): F03.90 - UNSPECIFIED DEMENTIA WITHOUT BEHAVIORAL DISTURBANCE SNOMED Code(s): 82458748 Comment: Pt is essentially non-communicative. Continue to support pt as needed. (4) DVT prophylaxis Current Visit: Yes Status: Acute Code(s): SUJ1506 - SNOMED Code(s): 477780692 Comment: SQ heparin (5) DNR (do not resuscitate) Current Visit: Yes Status: Acute
[2016-11-21] MEDS: NS 0.9% 1000 ML* 1,000 ML IV SCH (15:49)
[2016-11-21] MEDS: cefTRIAXone VIAL(*) 1,000 MG in NS 0.9% 50 ML* 50 ML IVPB SCH (17:30)
[2016-11-22] MEDS: Levothyroxine TAB* 25 MCG TAB PO SCH (05:03)
[2016-11-22] MEDS: Omeprazole CAP* 20 MG PO SCH (05:03)
[2016-11-22] MEDS: Heparin VIAL(*) 5000 UNITS/ML VIAL (FIVE THOUSAND) SUBCUT SCH ×2 (05:06→13:32)
[2016-11-22] MEDS: NS 0.9% 1000 ML* 1,000 ML IV SCH (05:40)
[2016-11-22] MEDS: Senna TAB PO SCH (08:46)
[2016-11-22] MEDS ORDERED: D5W 20 MEQ KCL 1000 ML BAG* 1,000 ML IV SCH (12:00)
--- NOTE | 2016-11-22 12:11 | PN ---
Subjective Date of Service: 11/22/16 Interval History: Patient not able to make her needs known. Family History: Unchanged from Admission Social History: Unchanged from Admission Past Medical History: Unchanged from Admission Objective Active Medications: Acetaminophen (Tylenol Tab*) 650 mg PO Q6H PRN PRN Reason: FEVER/PAIN Heparin Sodium (Porcine) (Heparin Vial(*)) 5,000 units SUBCUT Q8HR [facility] Last Admin: 11/22/16 05:06 Dose: 5,000 units Ceftriaxone Sodium 1,000 mg/ (Sodium Chloride) 50 mls @ 200 mls/hr IVPB Q24H [facility] Last Admin: 11/21/16 17:30 Dose: 200 mls/hr Potassium Chloride/Dextrose (D5w 20 Meq Kcl 1000 Ml Bag*) 1,000 mls @ 75 mls/ hr IV PER RATE [facility] Levothyroxine Sodium (Synthroid Tab*) 25 mcg PO 0600 [facility] Last Admin: 11/22/16 05:03 Dose: 25 mcg Omeprazole (Prilosec Cap*) 20 mg PO DAILY@0600 [facility] Last Admin: 11/22/16 05:03 Dose: 20 mg Ondansetron HCl (Zofran Inj*) 4 mg IV Q6H PRN PRN Reason: NAUSEA Senna (Senokot Tab*) 1 tab PO DAILY [facility] Last Admin: 11/22/16 08:46 Dose: 1 tab Vital Signs 11/21/16 11/21/16 11/21/16 12:06 15:37 20:00 Temperature 98.2 F 97.4 F Pulse Rate 72 74 Respiratory 16 18 Rate Blood Pressure 126/42 130/59 (mmHg) O2 Sat by Pulse 96 98 Oximetry 11/21/16 11/22/16 11/22/16 23:48 07:47 08:00 Temperature 98.4 F 97.5 F Pulse Rate 71 72 Respiratory 14 16 16 Rate Blood Pressure 125/54 121/59 (mmHg) O2 Sat by Pulse 100 99 Oximetry Oxygen Devices in Use Now: None Appearance: Alert, partly up in bed. Non-verbal. Looks comfortable. Eyes: No Scleral Icterus Neck: NL Appearance and Movements; NL JVP, No Thyroid Enlargement, Masses Respiratory: Symmetrical Chest Expansion and Respiratory Effort, Clear to Auscultation, Clear to Percussion Cardiovascular: NL Sounds; No Murmurs; No JVD, RRR, No Edema, - Extremities: No Edema, No Clubbing, Cyanosis, - Neurological: NL Sensation - Repeats one syllable. No sign of comprehension. Result Diagrams: 11/19/16 05:22 11/21/16 07:50 Additional Lab and Data: Lab Results 11/18/16 11/18/16 11/18/16 Range/Units 00:17 00:17 00:17 WBC 12.8 H (3.5-10.8) 10^3/ul RBC 5.09 (4.0-5.4) 10^6/ul Hgb 15.3 (12.0-16.0) g/dl Hct 48 H (35-47) % MCV 94 (80-97) fL MCH 30 (27-31) pg MCHC 32 (31-36) g/dl RDW 14 (10.5-15) % Plt Count 228 (150-450) 10^3/ul MPV 9 (7.4-10.4) um3 Neut % (Auto) 78.5 (38-83) % Lymph % (Auto) 9.5 L (25-47) % [place] % (Auto) 9.6 H (1-9) % Eos % (Auto) 1.6 (0-6) % Baso % (Auto) 0.8 (0-2) % Absolute Neuts (auto) 10.0 H (1.5-7.7) 10^3/ul Absolute Lymphs (auto) 1.2 (1.0-4.8) 10^3/ul Absolute Monos (auto) 1.2 H (0-0.8) 10^3/ul Absolute Eos (auto) 0.2 (0-0.6) 10^3/ul Absolute Basos (auto) 0.1 (0-0.2) 10^3/ul Absolute Nucleated RBC 0.04 10^3/ul Nucleated RBC % 0.3 INR (Anticoag Therapy) 1.14 H (0.89-1.11) APTT 41.4 H (26.0-36.3) seconds Sodium 161 H* (133-145) mmol/L Potassium 3.6 (3.5-5.0) mmol/L Chloride 125 H (101-111) mmol/L Carbon Dioxide 28 (22-32) mmol/L Anion Gap 8 (2-11) mmol/L BUN 48 H (6-24) mg/dL Creatinine 1.47 H (0.51-0.95) mg/dL Est GFR ( Amer) 43.1 (>60) Est GFR (Non-Af Amer) 33.5 (>60) BUN/Creatinine Ratio 32.7 H (8-20) Glucose 119 H (70-100) mg/dL Lactic Acid (0.5-2.0) mmol/L Calcium 10.1 (8.6-10.3) mg/dL Magnesium 2.9 H (1.9-2.7) mg/dL Total Bilirubin 0.90 (0.2-1.0) mg/dL AST 28 (13-39) U/L ALT 76 H (7-52) U/L Alkaline Phosphatase 175 H (34-104) U/L Total Creatine Kinase 106 (10-223) U/L CK-MB (CK-2) 3.1 (0.6-6.3) ng/mL Troponin I 0.05 H* (<0.04) ng/mL C-Reactive Protein 97.65 H (< 5.00) mg/L Total Protein 7.8 (6.4-8.9) g/dL Albumin 3.7 (3.2-5.2) g/dL Globulin 4.1 H (2-4) g/dL Albumin/Globulin Ratio 0.9 L (1-3) Lipase 27 (11.0-82.0) U/L TSH 1.34 (0.34-5.60) mcIU/mL 11/18/ Range/Units 00:17 WBC (3.5-10.8) 10^3/ul RBC (4.0-5.4) 10^6/ul Hgb (12.0-16.0) g/dl Hct (35-47) % MCV (80-97) fL MCH (27-31) pg MCHC (31-36) g/dl RDW (10.5-15) % Plt Count (150-450) 10^3/ul MPV (7.4-10.4) um3 Neut % (Auto) (38-83) % Lymph % (Auto) (25-47) % [place] % (Auto) (1-9) % Eos % (Auto) (0-6) % Baso % (Auto) (0-2) % Absolute Neuts (auto) (1.5-7.7) 10^3/ul Absolute Lymphs (auto) (1.0-4.8) 10^3/ul Absolute Monos (auto) (0-0.8) 10^3/ul Absolute Eos (auto) (0-0.6) 10^3/ul Absolute Basos (auto) (0-0.2) 10^3/ul Absolute Nucleated RBC 10^3/ul Nucleated RBC % INR (Anticoag Therapy) (0.89-1.11) APTT (26.0-36.3) seconds Sodium (133-145) mmol/L Potassium (3.5-5.0) mmol/L Chloride (101-111) mmol/L Carbon Dioxide (22-32) mmol/L Anion Gap (2-11) mmol/L BUN (6-24) mg/dL Creatinine (0.51-0.95) mg/dL Est GFR ( Amer) (>60) Est GFR (Non-Af Amer) (>60) BUN/Creatinine Ratio (8-20) Glucose (70-100) mg/dL Lactic Acid 2.0 (0.5-2.0) mmol/L Calcium (8.6-10.3) mg/dL Magnesium (1.9-2.7) mg/dL Total Bilirubin (0.2-1.0) mg/dL AST (13-39) U/L ALT (7-52) U/L Alkaline Phosphatase (34-104) U/L Total Creatine Kinase (10-223) U/L CK-MB (CK-2) (0.6-6.3) ng/mL Troponin I (<0.04) ng/mL C-Reactive Protein (< 5.00) mg/L Total Protein (6.4-8.9) g/dL Albumin (3.2-5.2) g/dL Globulin (2-4) g/dL Albumin/Globulin Ratio (1-3) Lipase (11.0-82.0) U/L TSH (0.34-5.60) mcIU/mL Microbiology and Other Data: Microbiology 11/18/16 07:39 Nasal Screen MRSA (PCR)([facility]) - Final Nasal Mrsa Negative Assess/Plan/Problems-Billing Ms Bustamante is an 86 yo F with a h/o advanced dementia who was brought to the ER for hypoxia but found to be hypernatremic. - Patient Problems (1) UTI (urinary tract infection) Current Visit: Yes Status: Acute Comment: Urine grew quinones-sensitive E coli. Continue ceftriaxone for now. I note oral intake recorded as 810 ml on 11/21. (2) Hypernatremia Current Visit: Yes Status: Acute Code(s): E87.0 - HYPEROSMOLALITY AND HYPERNATREMIA SNOMED Code(s): 78500221 Comment: Change to D5/W with KCL. BMP 11/23. (3) Dementia Current Visit: Yes Status: Acute Code(s): F03.90 - UNSPECIFIED DEMENTIA WITHOUT BEHAVIORAL DISTURBANCE SNOMED Code(s): 53890565 Comment: I spoke with nephew Jayden Bustamante. (Home: , cell: ) He requested comfort care/do not hospitalize.
--- NOTE | 2016-11-22 15:04 | TRS ---
TRANSFER SUMMARY: DATE OF ADMISSION: 11/18/16 DATE OF TRANSFER: 11/22/16 HISTORY: This 86-year-old woman has been a long-term resident of [facility]. She was found to have hypoxia at the detention. She was not in respiratory distress. She was found to have a BUN of 48 and a creatinine of 1.47, both significantly higher than previous values. Her sodium was 164. She was found to have a urinary tract infection and she was treated with ceftriaxone. Her sodium came down as low as 148. There was really little improvement in her condition. I spoke to her nephew, Jayden Bustamante, over the phone. He has not seen her in many years, but he is the closest relative. He lives in [place]. He says she would not know who he was and has nobody else close to her in the world. She has had profound dementia for a long time. He agreed that comfort measures were best in her case. A Palliative consultation was obtained, but the final evaluation has not been done. The nephew and I agree that the patient would have comfort care with do not hospitalize order. Her only medications will be acetaminophen, morphine, atropine, and lorazepam in the usual hospice regimen. Depending on her food and drink intake, her prognosis will vary, but I would be pretty confident that it would be less than 6 months. FINAL DIAGNOSES: 1. Dementia. 2. Urinary tract infection. DISCHARGE MEDICATIONS: 1. Acetaminophen 650 mg every 4 hours p.r.n. 2. Morphine 5 mg sublingual every 30 minutes p.r.n. 3. Lorazepam 1 mg sublingual every 2 hours p.r.n. 4. Atropine 2 drops sublingual every 2 hours p.r.n. [id number]/[facility] #: [id number] [facility]
--- NOTE | 2016-11-22 15:26 | PN ---
Progress Note - Progress Note Note: Time spent on discharge 50 minutes.
[2016-11-22 16:05] VITALS: BP 133/50
== END 2016-11-22 18:00 | disposition home or self-care (01) | DRG 690 ==
LOC: ED 22:25 → ICU 11-18 05:41 → MED 11-18 15:17
PROVIDERS: ADMIT Hospitalist; ATTEND Internal Medicine
DX: N39.0 Urinary tract infection, site not specified (principal); N17.9 Acute kidney failure, unspecified; E87.0 Hyperosmolality and hypernatremia; I24.8 Other forms of acute ischemic heart disease; B96.20 Unspecified Escherichia coli [E. coli] as the cause of diseases classified elsewhere; F01.50 Vascular dementia, unspecified severity, without behavioral disturbance, psychotic disturbance, mood disturbance, and anxiety; F31.9 Bipolar disorder, unspecified; E03.9 Hypothyroidism, unspecified; R63.0 Anorexia; K59.00 Constipation, unspecified; R26.9 Unspecified abnormalities of gait and mobility; E86.0 Dehydration; Z66 Do not resuscitate; R74.8 Abnormal levels of other serum enzymes; Z68.25 Body mass index [BMI] 25.0-25.9, adult; Z79.899 Other long term (current) drug therapy
CPT/HCPCS: 36415; 71010; 80048; 80053; 80076; 81003; 81015; 82550; 82553; 83605; 83690; 83735; 84300; 84443; 84484; 85025; 85027; 85610; 85730; 86140; 87077; 87086; 87186; 87641; 93005; A9270-GY; J0696; J1644; J3480